=== PATIENT | male | born 1970 | race Caucasian/White ===

== ENCOUNTER 2019-04-12 05:15 | Emergency (ER) | payer OTHER ==
[~2019-04-12] VITALS: Ht 165.1 cm; Wt 73.0 kg
[2019-04-12 05:42] VITALS: BP 146/93
[2019-04-12] MEDS ORDERED: ACETAMINOPHEN 325MG TABLET PO ONE (07:45)
== END 2019-04-12 09:22 | disposition home or self-care (01) ==
LOC: ER 05:15
DX: M25.512 Pain in left shoulder (principal); M25.571 Pain in right ankle and joints of right foot; M79.632 Pain in left forearm; E11.9 Type 2 diabetes mellitus without complications; I10 Essential (primary) hypertension; F17.200 Nicotine dependence, unspecified, uncomplicated; Z88.0 Allergy status to penicillin
CPT/HCPCS: 73030; 73090; 73610; 99283; Z7610